=== PATIENT | female | born 1960 | race Caucasian/White ===

== ENCOUNTER 2022-10-15 23:04 | Inpatient (IN) ==
[2022-10-15] MEDS ORDERED: ONDANSETRON 4 MG/2 ML VIAL IV STA (23:59)
[2022-10-15] MEDS ORDERED: SODIUM CHLORIDE 0.9% 1,000 ML IV STA (23:59)
[2022-10-15] MEDS ORDERED: KETOROLAC 30 MG/1 ML VIAL IV STA (23:59)
[2022-10-16 00:52] LABS: Basophils % 0.1 % (0.0-0.8); Eosinophils % 0.1 % (0.00-10.9); Hematocrit 33.4 VOL% (35.7-47.0); Hemoglobin 10.9 GM/DL (12.0-16.0); Immature Granulocytes % 0.8 %; Immature Granulocytes Absolute 0.06 #; Lymphocytes # 0.2 10*3/uL (1.4-4.0); Lymphocytes % 2.5 % (21.3-54.2); Mean Corpuscular HGB Conc 32.6 GM/DL (32-36); Mean Corpuscular Volume 97.9 FL (87-102); Mean Platelet Volume 10.1 FL (9.6-12.0); Monocytes # 0.3 10*3/uL (0.11-0.8); Monocytes % 4.1 % (1.7-12.7); Neutrophils % 92.4 % (38.7-73.9); Platelet Count 145 T/CUMM (130-400); Red Blood Count 3.41 MC/CUMM (3.8-5.5); Red Cell Distribution Width 12.7 % (9.3-17.3); White Blood Count 7.1 T/CUMM (4-12)
[2022-10-16 01:04] LABS: Bilirubin,Total 0.8 MG/DL (0.20-1.00); Calcium 8.5 MG/DL (8.5-10.1); Osmolality,Calculated 276.4 MOS/KG (273-304); Potassium 4.1 MMOL/L (3.5-5.1); Total Protein 6.5 G/DL (6.4-8.2)
[2022-10-16 01:16] LABS: Band Neutrophils 3 % (0-10); Lymphocytes 3 % (20-55); Platelet Estimate Adequate; Total Cells Counted 100
[2022-10-16 01:19] LABS: Mucus,Urine Occasional /LPF (Occasional); RBC,Urine 374 /HPF (0-4); Squamous Epithelial Cell,Urine Occasional /HPF (0-10)
[2022-10-16 01:23] LABS: Bilirubin,Urine Small mg/dL (Negative); Blood, Urine Moderate mg/dL (Negative); Glucose,Urine (UA) Negative (Negative); Ketones,Urine Trace mg/dL (Negative); Nitrite,Urine Negative (Negative); Protein,Urine 30 mg/dL (Negative); Urine Appearance Clear (Clear); Urine Color Yellow (Yellow); Urine Specific Gravity 1.025 (1.001-1.035); Urine Urobilinogen 0.2 eU/dL (<2.0)
[2022-10-16] MEDS ORDERED: cefTRIAXone 1,000 MG in SODIUM CHLORIDE 0.9% 100 ML IV STA (01:40)
[2022-10-16] MEDS ORDERED: PROMETHAZINE INJ 12.5 MG in SODIUM CHLORIDE 0.9% 50 ML IV STA (01:42)
[2022-10-16] MEDS ORDERED: PROMETHAZINE 25 MG/1 ML VIAL ONE ×2 (01:48→12:46)
[2022-10-16] MEDS ORDERED: ONDANSETRON 4 MG/2 ML VIAL IV PRN ×2 (02:49→12:31)
[2022-10-16] MEDS ORDERED: PROMETHAZINE 25 MG/1 ML VIAL IM PRN (02:49)
[2022-10-16] MEDS ORDERED: GLUCAGON 1 MG VIAL IM PRN (02:49)
[2022-10-16] MEDS ORDERED: hydrALAZINE 20 MG/1 ML VIAL IV PRN (02:49)
[2022-10-16] MEDS ORDERED: MORPHINE 2 MG/1 ML SYRINGE IV PRN (02:49)
[2022-10-16] MEDS ORDERED: DEXTROSE 10% 250 ML BAG IV PRN (03:57)
[2022-10-16] MEDS ORDERED: ENOXAPARIN 30 MG/0.3 ML SYRINGE SUBCUT SCH (04:00)
[2022-10-16] MEDS ORDERED: SODIUM CHLORIDE 0.9% 1,000 ML IV SCH (04:30)
[2022-10-16 06:40] LABS: Basophils % 0.2 % (0.0-0.8); Eosinophils % 0.2 % (0.00-10.9); Hematocrit 29.4 VOL% (35.7-47.0); Hemoglobin 9.8 GM/DL (12.0-16.0); Immature Granulocytes % 0.8 %; Immature Granulocytes Absolute 0.04 #; Lymphocytes # 0.1 10*3/uL (1.4-4.0); Lymphocytes % 2.3 % (21.3-54.2); Mean Corpuscular HGB Conc 33.3 GM/DL (32-36); Mean Corpuscular Volume 97.4 FL (87-102); Mean Platelet Volume 10.6 FL (9.6-12.0); Monocytes # 0.3 10*3/uL (0.11-0.8); Monocytes % 5.2 % (1.7-12.7); Neutrophils % 91.3 % (38.7-73.9); Platelet Count 115 T/CUMM (130-400); Red Blood Count 3.02 MC/CUMM (3.8-5.5); Red Cell Distribution Width 12.9 % (9.3-17.3); White Blood Count 4.8 T/CUMM (4-12)
[2022-10-16 06:58] LABS: Albumin 2.7 G/DL (3.4-5.0); Bilirubin,Total 0.5 MG/DL (0.20-1.00); Calcium 8.4 MG/DL (8.5-10.1); Osmolality,Calculated 284.8 MOS/KG (273-304); Potassium 4.4 MMOL/L (3.5-5.1); Total Protein 6.2 G/DL (6.4-8.2)
[2022-10-16 07:15] LABS: Band Neutrophils 37 % (0-10); Lymphocytes 4 % (20-55); Platelet Estimate Adequate; Total Cells Counted 100
[2022-10-16 07:16] LABS: Macrocytosis Slight; Nucleated Red Blood Cells 1 /100 WBC (0-5)
[2022-10-16] MEDS: INSULIN LISPRO 100 UNIT/ML SUBCUT SCH ×4 (08:30→20:47)
[2022-10-16] MEDS ORDERED: cefTRIAXone 1,000 MG in SODIUM CHLORIDE 0.9% 100 ML IV ONE (11:32)
[2022-10-16] MEDS ORDERED: MIDAZOLAM 2 MG/2 ML VIAL ONE (12:16)
[2022-10-16] MEDS ORDERED: fentaNYL 100 MCG/2 ML VIAL ONE (12:16)
[2022-10-16] MEDS ORDERED: LIDOCAINE 2% 5 ML VIAL ONE (12:16)
[2022-10-16] MEDS ORDERED: propofoL 200 MG/20 ML VIAL IV ONE (12:16)
[2022-10-16] MEDS ORDERED: ONDANSETRON 4 MG/2 ML VIAL ONE ×2 (12:16→12:46)
[2022-10-16] MEDS: OXYBUTYNIN XL 10 MG TABLET PO SCH (12:26)
[2022-10-16] MEDS: VALSARTAN 80 MG TABLET PO SCH (12:26)
[2022-10-16] MEDS: MULTIVITAMIN (CENTRUM) TABLET PO SCH (12:26)
[2022-10-16] MEDS: ESCITALOPRAM 10 MG TABLET PO SCH (12:27)
[2022-10-16] MEDS: TAMSULOSIN 0.4 MG CAPSULE PO SCH (12:27)
[2022-10-16] MEDS: CALCIUM (CARBONATE) 500 MG TABLET PO SCH (12:27)
[2022-10-16] MEDS: PANTOPRAZOLE 40 MG TABLET PO SCH (12:27)
[2022-10-16] MEDS ORDERED: SCOPOLAMINE 1.5 MG PATCH TRANSDERM ONE (12:27)
[2022-10-16] MEDS: GLUCOSAMINE SULFATE 500 MG PO SCH ×2 (12:27→20:46)
[2022-10-16] MEDS ORDERED: HYDROmorphone 1 MG/1 ML SYRINGE IV PRN (12:31)
[2022-10-16] MEDS ORDERED: diphenhydrAMINE 50 MG/1 ML VIAL IV PRN (12:31)
[2022-10-16] MEDS ORDERED: PROMETHAZINE INJ 25 MG in SODIUM CHLORIDE 0.9% 50 ML IV PRN (12:31)
[2022-10-16] MEDS ORDERED: MEPERIDINE 25 MG/1 ML VIAL IV PRN (12:31)
[2022-10-16] MEDS ORDERED: DEXAMETHASONE 4 MG/1 ML VIAL ONE (12:46)
[2022-10-16] MEDS ORDERED: ACETAMINOPHEN INJ 1,000 MG/100 ML VIAL IV ONE (12:47)
[2022-10-16] MEDS ORDERED: PHENYLEPHRINE 1 MG/10 ML SYRINGE IV ONE (12:53)
[2022-10-16] MEDS ORDERED: SODIUM CHLORIDE 0.9% 1,000 ML IV ONE (12:58)
[2022-10-16] MEDS ORDERED: SEVOFLURANE 1 UNIT/15 MINUTE INH ONE (13:03)
[2022-10-16] MEDS ORDERED: FLUCONAZOLE 200 MG TABLET PO ONE (13:05)
[2022-10-16] MEDS ORDERED: AMISULPRIDE 10 MG/4 ML VIAL IV ONE (13:29)
[2022-10-16] MEDS: FERROUS SULFATE 325 MG TABLET PO SCH (20:53)
[2022-10-16] MEDS: ASPIRIN EC 81 MG TABLET PO SCH (20:53)
[2022-10-17] MEDS ORDERED: cefTRIAXone 1,000 MG in SODIUM CHLORIDE 0.9% 100 ML IV SCH (02:00)
[2022-10-17] MEDS: ALUMINUM/MAGNES/SIMETH MAX STR 30 ML UDCUP PO PRN ×2 (02:03→13:33)
[2022-10-17 06:18] LABS: Basophils % 0.2 % (0.0-0.8); Hematocrit 29.5 VOL% (35.7-47.0); Hemoglobin 9.8 GM/DL (12.0-16.0); Immature Granulocytes % 0.6 %; Immature Granulocytes Absolute 0.03 #; Lymphocytes # 0.4 10*3/uL (1.4-4.0); Lymphocytes % 7.3 % (21.3-54.2); Mean Corpuscular HGB Conc 33.2 GM/DL (32-36); Mean Platelet Volume 10.1 FL (9.6-12.0); Monocytes # 0.3 10*3/uL (0.11-0.8); Monocytes % 6.3 % (1.7-12.7); Neutrophils % 85.6 % (38.7-73.9); Platelet Count 143 T/CUMM (130-400); Red Blood Count 3.04 MC/CUMM (3.8-5.5); Red Cell Distribution Width 12.8 % (9.3-17.3); White Blood Count 5.1 T/CUMM (4-12)
[2022-10-17 06:34] LABS: Calcium 8.6 MG/DL (8.5-10.1); Osmolality,Calculated 290.1 MOS/KG (273-304); Potassium 4.2 MMOL/L (3.5-5.1)
[2022-10-17] MEDS: INSULIN LISPRO 100 UNIT/ML SUBCUT SCH ×3 (08:39→15:58)
[2022-10-17] MEDS: MULTIVITAMIN (CENTRUM) TABLET PO SCH (09:52)
[2022-10-17] MEDS: VALSARTAN 80 MG TABLET PO SCH (09:52)
[2022-10-17] MEDS: OXYBUTYNIN XL 10 MG TABLET PO SCH (09:52)
[2022-10-17] MEDS: TAMSULOSIN 0.4 MG CAPSULE PO SCH (09:53)
[2022-10-17] MEDS: CALCIUM (CARBONATE) 500 MG TABLET PO SCH (09:53)
[2022-10-17] MEDS: ENOXAPARIN 40 MG/0.4 ML SYRINGE SUBCUT SCH (09:53)
[2022-10-17] MEDS: PANTOPRAZOLE 40 MG TABLET PO SCH (09:53)
[2022-10-17] MEDS: ESCITALOPRAM 10 MG TABLET PO SCH (09:53)
[2022-10-17] MEDS: ACETAMINOPHEN 325 MG TABLET PO PRN (16:43)
[2022-10-17] MEDS: ASPIRIN EC 81 MG TABLET PO SCH (20:41)
[2022-10-17] MEDS: FERROUS SULFATE 325 MG TABLET PO SCH (20:41)
[2022-10-17] MEDS ORDERED: SODIUM CHLORIDE 0.65% NASAL SPRAY 45 ML BOTTLE BOTH NARES PRN (23:32)
[2022-10-18] MEDS: ACETAMINOPHEN 325 MG TABLET PO PRN (00:59)
[2022-10-18] MEDS ORDERED: MELATONIN 3 MG TABLET PO PRN (01:24)
[2022-10-18 05:36] LABS: Basophils % 0.4 % (0.0-0.8); Eosinophils % 0.4 % (0.00-10.9); Hematocrit 28.6 VOL% (35.7-47.0); Immature Granulocytes % 0.7 %; Immature Granulocytes Absolute 0.04 #; Lymphocytes % 17.9 % (21.3-54.2); Mean Corpuscular HGB Conc 31.5 GM/DL (32-36); Mean Corpuscular Volume 101.4 FL (87-102); Mean Platelet Volume 9.4 FL (9.6-12.0); Monocytes # 0.6 10*3/uL (0.11-0.8); Monocytes % 10.2 % (1.7-12.7); Neutrophils % 70.4 % (38.7-73.9); Platelet Count 141 T/CUMM (130-400); Red Blood Count 2.82 MC/CUMM (3.8-5.5); Red Cell Distribution Width 13.1 % (9.3-17.3); White Blood Count 5.4 T/CUMM (4-12)
[2022-10-18 05:57] LABS: Calcium 8.5 MG/DL (8.5-10.1); Osmolality,Calculated 285.3 MOS/KG (273-304); Potassium 4.7 MMOL/L (3.5-5.1)
[2022-10-18] MEDS ORDERED: cefTRIAXone 1,000 MG in SODIUM CHLORIDE 0.9% 100 ML IV ONE (07:00)
[2022-10-18] MEDS: VALSARTAN 80 MG TABLET PO SCH (10:10)
[2022-10-18] MEDS: TAMSULOSIN 0.4 MG CAPSULE PO SCH (10:10)
[2022-10-18] MEDS: CALCIUM (CARBONATE) 500 MG TABLET PO SCH (10:10)
[2022-10-18] MEDS: OXYBUTYNIN XL 10 MG TABLET PO SCH (10:10)
[2022-10-18] MEDS: MULTIVITAMIN (CENTRUM) TABLET PO SCH (10:10)
[2022-10-18] MEDS: ESCITALOPRAM 10 MG TABLET PO SCH (10:10)
[2022-10-18] MEDS: PANTOPRAZOLE 40 MG TABLET PO SCH (10:11)
[2022-10-18] MEDS ORDERED: propofoL 200 MG/20 ML VIAL IV ONE (12:28)
[2022-10-18] MEDS ORDERED: LIDOCAINE 2% 5 ML VIAL ONE (12:28)
[2022-10-18] MEDS ORDERED: MIDAZOLAM 2 MG/2 ML VIAL ONE (12:28)
[2022-10-18] MEDS ORDERED: fentaNYL 100 MCG/2 ML VIAL ONE (12:28)
[2022-10-18] MEDS ORDERED: GENTAMICIN 80 MG/2 ML VIAL ONE (12:47)
[2022-10-18] MEDS ORDERED: DEXAMETHASONE 4 MG/1 ML VIAL ONE (12:51)
[2022-10-18] MEDS ORDERED: SEVOFLURANE 1 UNIT/15 MINUTE INH ONE (13:04)
[2022-10-18] MEDS ORDERED: KETOROLAC 30 MG/1 ML VIAL ONE (13:08)
[2022-10-18] MEDS ORDERED: PROMETHAZINE INJ 25 MG in SODIUM CHLORIDE 0.9% 50 ML IV PRN (13:20)
[2022-10-18] MEDS ORDERED: ONDANSETRON 4 MG/2 ML VIAL IV PRN (13:20)
[2022-10-18] MEDS ORDERED: HYDROmorphone 1 MG/1 ML SYRINGE IV PRN (13:20)
[2022-10-18] MEDS ORDERED: diphenhydrAMINE 50 MG/1 ML VIAL IV PRN (13:20)
[2022-10-18] MEDS ORDERED: MEPERIDINE 25 MG/1 ML VIAL IV PRN (13:20)
[2022-10-18] MEDS: SODIUM CHLORIDE 0.9% 1,000 ML IV SCH ×2 (13:22→20:27)
[2022-10-18] MEDS: ASPIRIN EC 81 MG TABLET PO SCH (20:24)
[2022-10-18] MEDS: FERROUS SULFATE 325 MG TABLET PO SCH (20:24)
[2022-10-19 05:24] LABS: Basophils % 0.2 % (0.0-0.8); Hematocrit 29.2 VOL% (35.7-47.0); Hemoglobin 9.4 GM/DL (12.0-16.0); Immature Granulocytes Absolute 0.08 #; Lymphocytes # 0.7 10*3/uL (1.4-4.0); Lymphocytes % 16.1 % (21.3-54.2); Mean Corpuscular HGB Conc 32.2 GM/DL (32-36); Mean Corpuscular Volume 99.3 FL (87-102); Mean Platelet Volume 9.3 FL (9.6-12.0); Monocytes # 0.4 10*3/uL (0.11-0.8); Monocytes % 9.3 % (1.7-12.7); Neutrophils % 72.4 % (38.7-73.9); Platelet Count 113 T/CUMM (130-400); Red Blood Count 2.94 MC/CUMM (3.8-5.5); Red Cell Distribution Width 12.7 % (9.3-17.3); White Blood Count 4.1 T/CUMM (4-12)
[2022-10-19 05:47] LABS: Calcium 8.8 MG/DL (8.5-10.1); Osmolality,Calculated 284.5 MOS/KG (273-304); Potassium 4.4 MMOL/L (3.5-5.1)
[2022-10-19] MEDS: VALSARTAN 80 MG TABLET PO SCH (10:21)
[2022-10-19] MEDS: PANTOPRAZOLE 40 MG TABLET PO SCH (10:21)
[2022-10-19] MEDS: CALCIUM (CARBONATE) 500 MG TABLET PO SCH (10:21)
[2022-10-19] MEDS: MULTIVITAMIN (CENTRUM) TABLET PO SCH (10:21)
[2022-10-19] MEDS: OXYBUTYNIN XL 10 MG TABLET PO SCH (10:21)
[2022-10-19] MEDS: TAMSULOSIN 0.4 MG CAPSULE PO SCH (10:21)
[2022-10-19] MEDS: ESCITALOPRAM 10 MG TABLET PO SCH (10:21)
[2022-10-19] MEDS: ENOXAPARIN 40 MG/0.4 ML SYRINGE SUBCUT SCH (10:23)
[2022-10-19 13:19] VITALS: BP 144/52
[2022-10-19] MEDS: SODIUM CHLORIDE 0.9% 1,000 ML IV SCH (13:33)
== END 2022-10-19 14:49 | disposition home or self-care (01) | DRG 660 ==
LOC: N.ED 23:04 → N.EDINP 10-16 02:44 → SUATTDRO 10-16 02:44 → N.EDINP 10-16 04:08 → N.5E 10-16 04:46 → N.2E 10-18 11:21
PROVIDERS: ADMIT Family Medicine; ATTEND Hospitalist